=== PATIENT | male | born 1955 | race Hispanic/Latino ===

== ENCOUNTER 2024-04-23 15:40 | Emergency (ER) | payer MEDICARE ==
[~2024-04-23] VITALS: Ht 170.2 cm; Wt 77.1 kg
[2024-04-23] MEDS: SODIUM CHLORIDE 0.9% 1000ML 1,000 ML IV STA (16:11)
[2024-04-23] MEDS: IBUPROFEN 600 MG TAB PO STA (16:11)
[2024-04-23] MEDS: ONDANSETRON HCL INJ 2MG/ML 2ML 2 MG/ML VIAL IV STA (16:11)
[2024-04-23] MEDS: ACETAMINOPHEN 1000 MG/100 ML IV STA (16:12)
[2024-04-23 16:13] LABS: BASOPHILS % 0.1 % (0.0-1.0); HEMOGLOBIN 14.4 g/dL (14.0-18.0); LYMPHOCYTES # (AUTO) 0.7 (1.0-3.2); MEAN CORPUSCULAR HEMOGLOBIN 31.5 pg (28-32); MEAN CORPUSCULAR HGB CONC 32.7 g/dL (31-35); MEAN CORPUSCULAR VOLUME 96.3 fL (81-99); MONOCYTES % 9.9 % (4.4-11.3); NEUTROPHILS # (AUTO) 8.1 (2.1-6.9); NEUTROPHILS % 82.6 % (38.7-80.0); PLATELET COUNT 122 x10e3/uL (140-360); RED BLOOD COUNT 4.57 x10e6/uL (4.3-5.7); RED CELL DISTRIBUTION WIDTH 13.5 % (11.7-14.4); WHITE BLOOD COUNT 9.81 x10e3/uL (4.8-10.8)
[2024-04-23 16:32] LABS: ALBUMIN 3.4 g/dL (3.5-5.0); ALBUMIN/GLOBULIN RATIO 0.8 (0.8-2.0); ANION GAP 17.5 mmol/L (8-16); BILIRUBIN,TOTAL 0.5 mg/dL (0.2-1.2); CALCIUM 9.3 mg/dL (8.4-10.2); CREATININE, SERUM 1.36 mg/dL (0.72-1.25); MAGNESIUM 1.6 MG/DL (1.3-2.1); POTASSIUM 3.5 mmol/L (3.5-5.1); TOTAL PROTEIN 7.5 g/dL (6.5-8.1)
[2024-04-23 16:38] LABS: TROPONIN I 0.005 ng/mL (0-0.300)
[2024-04-23 17:11] VITALS: PULSE 94; RESP 14; TEMP 100.1; O2SAT 99
[2024-04-23 17:40] LABS: BILIRUBIN,URINE NEGATIVE (NEGATIVE); CLARITY,URINE HAZY (CLEAR); COLOR,URINE YELLOW (YELLOW); GLUCOSE, URINE NEGATIVE (NEGATIVE); KETONES,URINE NEGATIVE (NEGATIVE); LEUKOCYTE ESTERASE ,URINE SMALL (NEGATIVE); NITRITE,URINE POSITIVE (NEGATIVE); PH,URINE 5.5 (5 - 7); PROTEIN,URINE DIPSTICK 1+ (NEGATIVE); URINE UROBILINOGEN 0.2 mg/dL (0.2 - 1)
[2024-04-23 17:43] LABS: WBC,URINE (MAN) >50 /HPF (0-5)
[2024-04-23 17:44] LABS: BACTERIA,URINE MANY /HPF; RBC,URINE 0-5 /HPF (0-5)
[2024-04-23 17:45] LABS: EPITHELIAL CELLS,URINE FEW /LPF
[2024-04-23] MEDS ORDERED: CEFDINIR300 MG PO (18:08)
== END 2024-04-23 18:25 | disposition home or self-care (01) ==
LOC: ER 15:57
DX: R50.9 Fever, unspecified (principal); U07.1 COVID-19; N39.0 Urinary tract infection, site not specified; E86.0 Dehydration
CPT/HCPCS: 36415; 80053; 81001; 82550; 82948; 83735; 84484; 85025; 87086; 87186; 93005; 99283; J0131; J0696; J2405; J7030